=== PATIENT | male | born 1970 | race Caucasian/White ===

== ENCOUNTER 2018-09-08 13:56 | Emergency (ER) | payer OTHER ==
--- NOTE | 2018-09-08 14:07 | PDOC ---
Attending Attestation - Resident Resident Name: AndersonKoby - ED Attending Attestation I have performed the following: I have examined & evaluated the patient, The case was reviewed & discussed with the resident, I agree w/resident's findings & plan, Exceptions are as noted - HPI HPI: 09/08/18 15:22 Healthy male 48 years old recently returned from travel to [place] as a tourist, primarily staying in the city, yesterday developed profuse watery diarrhea and myalgias. No nausea or vomiting. No melena or bloody stool. Feverish but no high fever was documented. Took no antipyretics today and temperature is 99.1. - Physicial Exam PE: 09/08/18 15:23 Physical exam reveals normal vital signs and normal exam except for mild diffuse abdominal tenderness without guarding or rebound. Adequate skin turgor and wet mucous membranes - Medical Decision Making 09/08/18 15:23 Assessment: Acute viral gastroenteritis, less likely bacterial enteritis, colitis, dengue, Zika Plan: Cultures, CBC and chemistries, IV hydration, and further evaluation and treatment depending on results. 09/08/18 17:43 Patient much better after rehydration and analgesics. Body aches improved. No further abdominal pain. No further diarrhea. Laboratory work shows no significant abnormalities. White blood count is normal. Slightly low potassium should respond to oral fluids. Fully ambulatory and in no pain or other distress upon discharge with to follow-up as directed. Stool cultures are pending.
[2018-09-08 14:17] VITALS: BMI 25.0
[2018-09-08] MEDS ORDERED: SODIUM CHLORIDE 1,000 ML IV STA ×2 (14:41→16:47)
[2018-09-08] MEDS ORDERED: ACETAMINOPHEN 1000 MG/100 ML VIAL (NON FORMULARY) IVPB ONE (14:41)
[2018-09-08] MEDS ORDERED: ACETAMINOPHEN INJECTION 100 ML IVPB ONE (14:42)
--- NOTE | 2018-09-08 15:06 | PDOC ---
History of Present Illness - General Chief Complaint: Pain Stated Complaint: BODY ACHES ABDOMINAL PAIN LOOSE STOOL Time Seen by Provider: 09/08/18 14:03 History Source: Patient Exam Limitations: No Limitations - History of Present Illness Initial Comments: 09/08/18 14:53 Mr. Hernandez is a 48 yo M with no pertinent past medical history who is presenting to the emergency department with generalized body aches with associative fever and diarrhea for 2 days. Per the patient, he woke up yesterday morning with body aches throughout that is described as constant, dull , 7/10 in severity, that was relieved with 1x dose of dayquil yesterday (did not take medications today). He states he has had 30x episodes of diarrhea that is described as yellow fluid with some stool parts without blood. He denies having PO intake over last 24 hours because "it goes through me in minutes". He recently arrived back from [place] from a tourist trip and states he ate street food and only consumed bottled water at a hotel. He denies having a flu vaccine, prophylaxis treatment for yellow fever and malaria, and has an unknown status on hepatitis vaccine. Endorses the following: headaches, fevers, chills, generalized weakness, dehydration, and lightheadedness. Denies the following: visual changes, hemoptysis, epistaxis, chest pain, URI ssx, SOB, dysuria, hematuria, hematochezia, melena, and leg pain/swelling. Pmhx: None Shx: None Meds: None Allergies: Sulfa drugs Social: Denies tobacco, alcohol, and substance abuse. PCP: Dr. Patel Past History - Past Medical History Allergies/Adverse Reactions: Allergies Allergy/AdvReac Type Severity Reaction Status Date / Time sulfur [From Sulfur-8] Allergy Unknown Verified 09/08/18 14:27 Home Medications: Ambulatory Orders NK [No Known Home Medication] 09/08/18 COPD: No Other medical history: DENIES - Suicide/Smoking/Psychosocial Hx Smoking History: Never smoked Have you smoked in the past 12 months: No Information on smoking cessation initiated: No Hx Alcohol Use: Yes (10 DRINKS /WEEK) Drug/Substance Use Hx: No Substance Use Type: Alcohol Review of Systems - Review of Systems Able to Perform ROS?: Yes Is the patient limited [place] proficient: No Constitutional: Yes: Chills, Fever, Night Sweats. No: Unexplained wgt Loss HEENTM: No: Eye Pain, Blurred Vision, Recent change in vision, Ear Pain, Nose Pain, Throat Pain Respiratory: No: Cough, Shortness of Breath, Hemoptysis Cardiac (ROS): Yes: Lightheadedness. No: Chest Pain, Palpitations, Syncope ABD/GI: Yes: Poor Appetite. No: Nausea, Rectal Bleeding, Vomiting, Tarry Stools : No: Burning, Dysuria, Hematuria Musculoskeletal: Yes: Joint Pain, Muscle Pain. No: Back Pain, Joint Swelling Integumentary: No: Bruising, Rash Neurological: Yes: Headache. No: Numbness, Paresthesia, Ataxia Psychiatric: No: Anxiety Endocrine: No: Unexplained Weight Gain Hematologic/Lymphatic: No: Anemia, Easy Bleeding *Physical Exam - Vital Signs Last Vital Signs Temp Pulse Resp BP Pulse Ox 99.1 F 107 H 16 122/91 100 09/08/18 14:01 09/08/18 14:01 09/08/18 14:01 09/08/18 14:01 09/08/18 14:01 - Physical Exam General Appearance: Yes: Nourished, Appropriately Dressed HEENT: positive: EOMI, ILIR, Normal ENT Inspection, Normal Voice, Symmetrical, TMs Normal, Pharyngeal Erythema, Tonsillar Erythema. negative: Tonsillar Exudate, Nasal Congestion, Rhinorrhea, Sinus Tenderness, TM Bulging, TM Dull, TM Erythema Neck: negative: Tender, Lymphadenopathy (R), Lymphadenopathy (L) Respiratory/Chest: positive: Lungs Clear, Normal Breath Sounds. negative: Chest Tender, Respiratory Distress, Accessory Muscle Use Cardiovascular: positive: Regular Rhythm, S1, S2, Tachycardia. negative: Systolic Murmur Gastrointestinal/Abdominal: positive: Tender (generalized tenderness with more in the epigastric, LLQ, and suprapubic region), Flat, Soft, Increased Bowel Sounds. negative: Pulsatile Mass, Guarding, Rebound Lymphatic: negative: Adenopathy Musculoskeletal: positive: Normal Inspection. negative: CVA Tenderness Extremity: positive: Normal Capillary Refill, Normal Inspection, Normal Range of Motion Integumentary: positive: Normal Color, Dry, Warm Neurologic: positive: retail associate II-XII NML intact, Fully Oriented, Alert, Normal Mood/ Affect, Normal Response, Motor Strength /5 ED Treatment Course - LABORATORY CBC & Chemistry Diagram: 09/08/18 15:01 09/08/18 15:01 Medical Decision Making - Medical Decision Making 09/08/18 15:30 Mr. Hernandez is a 48 yo M with no pertinent past medical history who is presenting to the emergency department with generalized body aches with associative fever and diarrhea for 2 days. Initial vitals: Initial Vital Signs Temp Pulse Resp BP Pulse Ox 99.1 F 107 H 16 122/91 100 09/08/18 14:01 09/08/18 14:01 09/08/18 14:01 09/08/18 14:01 09/08/18 14:01 DDx: Because of his recent travels, this adds to the differentials. Viral: gastroenteritis vs influenza vs dengue vs yellow fever. Bacterial/protozoan: e coli vs campylobacter vs cholera vs giardia vs salmonella vs shigella Work up: Laboratory Results - last 24 hr 09/08/18 09/08/18 09/08/18 14:51 15:01 15:01 WBC 5.7 RBC 4.97 Hgb 14.8 Hct 42.9 MCV 86.3 MCH 29.7 MCHC 34.4 RDW 12.2 Plt Count 204 D MPV 7.6 Absolute Neuts (auto) 4.5 Neutrophils % 78.9 D Lymphocytes % 12.1 D Monocytes % 8.8 Eosinophils % 0.0 D Basophils % 0.2 ESR 15 H Sodium 135 L Potassium 3.4 L D Chloride 99 Carbon Dioxide 26 Anion Gap 10 BUN 11 Creatinine 1.1 Creat Clearance w eGFR > 60 Random Glucose 101 Calcium 8.7 Total Bilirubin 0.9 AST 19 D ALT 17 D Alkaline Phosphatase 34 Total Protein 6.6 Albumin 3.8 Urine Color [place] Urine Appearance Clear Urine pH 5.5 Ur Specific [place] 1.020 Urine Protein 2+ H Urine Glucose (UA) Negative Urine Ketones 2+ H Urine Blood Trace-intact H Urine Nitrite Negative Urine Bilirubin 1+ H Urine Urobilinogen 0.2 Ur Leukocyte Esterase Negative Urine RBC 0-2 Urine WBC 0-2 Stool O & P Wet [place] & P Permanent Slide Fungal Cult Result 2 09/08/18 15:18 WBC RBC Hgb Hct MCV MCH MCHC RDW Plt Count MPV Absolute Neuts (auto) Neutrophils % Lymphocytes % Monocytes % Eosinophils % Basophils % ESR Sodium Potassium Chloride Carbon Dioxide Anion Gap BUN Creatinine Creat Clearance w eGFR Random Glucose Calcium Total Bilirubin AST ALT Alkaline Phosphatase Total Protein Albumin Urine Color Urine Appearance Urine pH Ur Specific [place] Urine Protein Urine Glucose (UA) Urine Ketones Urine Blood Urine Nitrite Urine Bilirubin Urine Urobilinogen Ur Leukocyte Esterase Urine RBC Urine WBC Stool O & P Wet [place] Cancelled O & P Permanent Slide Cancelled Fungal Cult Result 2 Cancelled Stool O and P was cancelled by the lab due to inadequate amount of stool specimen. CBC, CMP, UA, urine culture, stool culture/WBC/O and P, ESR and CRP ordered to assess possible etiology of the suspected infectious presentation. No leukocytosis present and UA showed ketones which correlates to his dehydration status. CMP was within normal limits save for a touch low potassium (3.4). He was given 1 gram of acetaminophen for pain control and 2 L of NS for rehydration. On reassessment, he had 5/10 pain and felt better. On a second reassessment, he stated his pain was coming back and was given 30 mg of toradol IV. On reassessment after the interventions, he felt well enough to go home with close follow up with his PMD. Dispo: DC to home 09/08/18 17:37 *DC/Admit/Observation/Transfer Diagnosis at time of Disposition: Generalized body aches Diarrhea Qualifiers: Diarrhea type: unspecified type Qualified Code(s): R19.7 - Diarrhea, unspecified - Discharge Dispostion Disposition: HOME Decision to Admit order: No - Referrals Referrals: Master Patel MD [Staff Physician] - - Patient Instructions Additional Instructions: You were evaluated in the emergency department for your body aches and diarrhea. Your labs were within normal limits with your urine showing elevation of ketones, which can be indicative of dehydration. You were given fluids through the IV and received toradol and IV tylenol. Please keep yourself hydrated at home with small boluses of fluids and eat as tolerated. Please use tylenol and ibuprofen as directed on the label for pain relief. Please return to the emergency department if you have worsening of current symptoms or develop new concerning symptoms such as worsening fever, bleeding from your nose , mouth, or rectum, have blood in your stool, inability to tolerate eating and drinking due to nausea and/or vomiting, and visual changes. Please follow up with your primary medical doctor within 48 hours for follow up care and management. Thank you. - Post Discharge Activity
[2018-09-08 15:09] LABS: PH,URINE 5.5 (4.5-8); URINE APPEARANCE Clear; URINE BILIRUBIN 1+ (NEGATIVE); URINE COLOR Amber; URINE GLUCOSE (UA) Negative (NEGATIVE); URINE KETONE 2+ (NEGATIVE); URINE LEUK ESTERASE Negative (NEGATIVE); URINE NITRITE Negative (NEGATIVE); URINE PROTEIN 2+ (NEGATIVE); URINE UROBILINOGEN 0.2 (0.2-1.0)
[2018-09-08 15:15] LABS: URINE RBC 0-2 /hpf (0-3); URINE WBC 0-2 (0-2)
[2018-09-08 15:24] LABS: BASO % 0.2 % (0-2.0); HEMATOCRIT 42.9 % (35.4-49); HEMOGLOBIN 14.8 GM/dl (11.7-16.9); LYMPH % 12.1 % (8-40); MCH 29.7 pg (25.7-33.7); MCHC 34.4 g/dl (32.0-35.9); MEAN CELL VOLUME 86.3 fl (80-96); MEAN PLT VOLUME 7.6 fl (7.5-11.1); MONO % 8.8 % (3.8-10.2); NEUT % 78.9 % (42.8-82.8); PLATELET COUNT 204 K/MM3 (134-434); RBC 4.97 M/mm3 (4.00-5.60); RDW 12.2 % (11.9-15.9); WHITE BLOOD COUNT 5.7 K/mm3 (4.0-10.8)
[2018-09-08 15:39] LABS: ALBUMIN 3.8 g/dl (3.5-5.0); ALK PHOS 34 U/L (32-92); ANION GAP 10 MMOL/L (8-16); BILIRUBIN,TOTAL 0.9 mg/dl (0.2-1.0); BLOOD UREA NITROGEN 11 mg/dl (7-18); CALCIUM 8.7 mg/dl (8.4-10.2); CHLORIDE 99 mmol/L (98-107); CO2 26 mmol/L (22-28); CREATININE 1.1 mg/dl (0.6-1.3); GLUCOSE,RANDOM 101 mg/dl (74-106); POTASSIUM 3.4 mmol/L (3.5-5.1); SGOT/AST 19 U/L (10-42); SGPT/ALT 17 U/L (10-40); SODIUM 135 mmol/L (136-145); TOT PROT 6.6 g/dl (6.4-8.3)
[2018-09-08 16:25] LABS: ERYTHROCYTE SEDIMENTATION RATE 15 mm/hr (0-10)
[2018-09-08] MEDS ORDERED: KETOROLAC TROMETHAMINE 30 MG/1 ML VIAL IVPUSH ONE (16:45)
[2018-09-08] MEDS ORDERED: KETOROLAC TROMETHAMINE 30 MG/1 ML VIAL ONE (16:49)
[2018-09-08 17:12] VITALS: BP 120/79; PULSE 80; TEMP 98.3
== END 2018-09-08 17:50 | disposition home or self-care (01) ==
LOC: SUPCPDRO 13:56 → FER 13:56
PROC: 3E033NZ Introduction of Analgesics, Hypnotics, Sedatives into Peripheral Vein, Percutaneous Approach (ICD-10-PCS; principal; 2018-09-08)
PROC: 3E0333Z Introduction of Anti-inflammatory into Peripheral Vein, Percutaneous Approach (ICD-10-PCS; 2018-09-08)
PROC: 3E0337Z Introduction of Electrolytic and Water Balance Substance into Peripheral Vein, Percutaneous Approach (ICD-10-PCS; 2018-09-08)
DX: R19.7 Diarrhea, unspecified (principal); R52 Pain, unspecified
CPT/HCPCS: 36415; 80053; 81003; 81015; 85025; 85651; 86140; 87040; 87045; 87046; 87086; 87186; 87205; 87804; 99283-25; J0131; J7030

== ENCOUNTER 2020-05-20 10:55 | Emergency (ER) | payer OTHER ==
[2020-05-20] MEDS ORDERED: morphine CARPU-JECT 4 MG/1 ML DISP.SYRIN IM ONE (11:20)
[2020-05-20 11:21] VITALS: BP 132/96; TEMP 99; BMI 25.0
[2020-05-20] MEDS ORDERED: morphine SULFATE 4 MG/ML VIAL ONE (11:24)
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
[2020-05-20 13:36] VITALS: PULSE 89
== END 2020-05-20 13:35 | disposition home or self-care (01) ==
LOC: FER 10:55
PROC: 3E023GC Introduction of Other Therapeutic Substance into Muscle, Percutaneous Approach (ICD-10-PCS; principal; 2020-05-20)
DX: S29.9XXA Unspecified injury of thorax, initial encounter (principal); W50.0XXA Accidental hit or strike by another person, initial encounter
CPT/HCPCS: 71046-TC-FY; 71101-TC-RT-FY; 99284-25